=== PATIENT | male | born 1960 | race African-American/Black ===

== ENCOUNTER 2016-03-17 08:17 | Emergency (ER) | payer OTHER ==
[2016-03-17 08:25] VITALS: BMI 26.9
--- NOTE | 2016-03-17 09:13 | PDOC ---
History of Present Illness - General History Source: Patient - History of Present Illness Timing/Duration: 1 week Severity: mild Associated Symptoms: denies: chest pain, headaches, nausea/vomiting, weakness <Camila JonesRejiKailey Last Filed: 03/17/16 11:24> <Gurjit Goel - Last Filed: 03/20/16 11:03> - General Chief Complaint: Pain Stated Complaint: TINGLING SENSATION TO LT ARM Time Seen by Provider: 03/17/16 08:49 Past History - Past Medical History Other medical history: denies - Psycho/Social/Smoking Cessation Hx Anxiety: No Suicidal Ideation: No Smoking History: Never smoked Have you smoked in the past 12 months: No Information on smoking cessation initiated: No Hx Alcohol Use: No Drug/Substance Use Hx: No Substance Use Type: None <Camila JonesRejiKailey Last Filed: 03/17/16 11:24> <Gurjit Goel - Last Filed: 03/20/16 11:03> - Past Medical History Allergies/Adverse Reactions: Allergies Allergy/AdvReac Type Severity Reaction Status Date / Time No Known Allergies Allergy Verified 03/17/16 08:20 Review of Systems - Review of Systems Constitutional: No: Chills, Fever Respiratory: No: Shortness of Breath Cardiac (ROS): No: Chest Pain ABD/GI: No: Nausea, Vomiting Musculoskeletal: No: Neck Pain Neurological: Yes: Tingling. No: Headache, Numbness, Dizziness <WellfleetCamila woodsRejiKailey Last Filed: 03/17/16 11:24> *Physical Exam - Vital Signs Last Vital Signs Temp Pulse Resp BP Pulse Ox 98.6 F 58 L 20 149/67 100 03/17/16 08:22 03/17/16 08:22 03/17/16 08:22 03/17/16 08:22 03/17/16 08:22 - Physical Exam General Appearance: Yes: Appropriately Dressed. No: Apparent Distress HEENT: positive: Normal Voice Neck: positive: Supple Respiratory/Chest: positive: Lungs Clear, Normal Breath Sounds. negative: Respiratory Distress Cardiovascular: positive: Regular Rate, S1, S2 Integumentary: positive: Dry, Warm Neurologic: positive: Fully Oriented, Alert, Normal Mood/Affect, Motor Strength 5/5 <Maxine Jones - Last Filed: 03/17/16 11:24> - Vital Signs Last Vital Signs Temp Pulse Resp BP Pulse Ox 98.1 F 60 18 131/82 100 03/17/16 11:54 03/17/16 11:54 03/17/16 11:54 03/17/16 11:54 03/17/16 11:54 <Gurjit Goel - Last Filed: 03/20/16 11:03> Heart Score/ECG Review - ECG Intrepretation Comment:: 03/17/16 11:20 Sinus samantha to 50 on EKG, ekg unremarkable otherwise <Camila JonesJackson - Last Filed: 03/17/16 11:24> ED Treatment Course - LABORATORY CBC & Chemistry Diagram: 03/17/16 09:40 03/17/16 09:40 <Camila JonesJackson - Last Filed: 03/17/16 11:24> - LABORATORY CBC & Chemistry Diagram: 03/17/16 09:40 03/17/16 09:40 - ADDITIONAL ORDERS Additional order review: 03/17/16 09:40 RBC 4.95 MCV 84.9 MCHC 32.2 RDW 13.5 MPV 8.1 Neutrophils % 38.3 L Lymphocytes % 50.4 H Monocytes % 7.7 Eosinophils % 2.8 Basophils % 0.8 <Gurjit Goel - Last Filed: 03/20/16 11:03> Medical Decision Making - Medical Decision Making 03/17/16 09:06 55 yo M, denies any pmhx, p/w tingling to LUE x 1 week. Pt reports sensation as "electric shock" that starts at L fingertips and radiates to shoulder, mostly present at nights and worse when lying on both sides and resolves in supine position. States sxs worsened last night and for the first time, symptoms is occuring in the day. Denies neck pain, numbness, weakness, CP or sob. No h/o similar sxs. No new meds See exam LUE tingling x 1 week Stable w/ unremarkable exam No neck pain/UE weakness to suggest radiculopathy, less likely cardiac or CVA, ? electrolyte ab/nl -ekg/labs -anticipate discharge w/ neuro f/u 03/17/16 11:20 Labs unremarkable. Patient stable for discharge at this time, to follow up with neurology <Maxine Jones - Last Filed: 03/17/16 11:24> - Medical Decision Making The patient was seen and evaluated in conjunction with CARRINGTON Haro under my direct supervision, ancillary studies were reviewed. I agree with the plan as outlined by CARRINGTON Jones . <Gurjit Goel - Last Filed: 03/20/16 11:03> *DC/Admit/Observation/Transfer <Maxine Jones - Last Filed: 03/17/16 11:24> <Gurjit Gole - Last Filed: 03/20/16 11:03> Diagnosis at time of Disposition: Tingling - Discharge Dispostion Disposition: HOME Condition at time of disposition: Good - Referrals Referrals: Binh Wiley [Primary Care Provider] - Shelli Garner MD [Staff Physician] - - Patient Instructions Printed Discharge Instructions: DI for Numbness/tingling Additional Instructions: The cause of your symptoms is unclear at this time. You will need to follow up with neurology for further evaluation. Follow-up with Dr. Vásquez
[2016-03-17 09:56] LABS: BASOPHIL 0.8 % (0-2.0); EOSINOPHIL 2.8 % (0-4.5); MCH 27.3 pg (25.7-33.7); MCHC 32.2 g/dl (32.0-35.9); MEAN CELL VOLUME 84.9 fl (80-96); MEAN PLT VOLUME 8.1 fl (7.5-11.1); NEUTROPHILS 38.3 % (42.8-82.8); PLATELET COUNT 210 K/MM3 (134-434); RDW 13.5 % (11.9-15.9); WHITE BLOOD COUNT 5.5 K/mm3 (4.0-10.0)
[2016-03-17 09:58] LABS: URINE APPEARANCE CLEAR; URINE BILIRUBIN NEGATIVE (NEGATIVE); URINE COLOR LTYELLOW; URINE GLUCOSE (UA) NEGATIVE (NEGATIVE); URINE KETONE NEGATIVE (NEGATIVE); URINE LEUK ESTERASE NEGATIVE (NEGATIVE); URINE NITRITE NEGATIVE (NEGATIVE); URINE PROTEIN NEGATIVE (NEGATIVE); URINE UROBILINOGEN NEGATIVE E.U./dl (0.2-1.0)
[2016-03-17 10:03] LABS: URINE BLOOD 1+ (NEGATIVE)
[2016-03-17 10:17] LABS: ALBUMIN 3.9 g/dl (3.4-5.0); ALK PHOS 50 U/L (45-117); ANION GAP 4 (8-16); CALCIUM 8.8 mg/dL (8.5-10.1); CO2 31 mmol/L (21-32); GLUCOSE,RANDOM 76 mg/dL (74-106); SGOT/AST 20 U/L (15-37); SGPT/ALT 28 U/L (12-78); TOT PROT 7.5 g/dl (6.4-8.2)
[2016-03-17 11:04] LABS: URINE MUCUS RARE; URINE RBC 2 /hpf (0-3); URINE WBC 1 /hpf (3-5)
[2016-03-17 11:55] VITALS: BP 131/82; PULSE 60; TEMP 98.1
[2016-03-17 12:09] LABS: TROPONIN I < 0.02 ng/ml (0.00-0.05)
--- NOTE | 2016-03-17 12:14 | EKG ---
Test Reason : Blood Pressure : / mmHG Vent. Rate : 048 BPM Atrial Rate : 048 BPM P-R Int : 196 ms QRS Dur : 088 ms QT Int : 430 ms P-R-T Axes : 028 -05 -05 degrees QTc Int : 384 ms SINUS BRADYCARDIA NONSPECIFIC ST ABNORMALITY ABNORMAL ECG WHEN COMPARED WITH ECG OF 12-DEC-2007 10:19, NO SIGNIFICANT CHANGE WAS FOUND Confirmed by RADHA MEJIAS MD ([id number]) on 03/17/2016 12:14:02 PM Referred By: Confirmed By:RADHA MEJIAS MD
== END 2016-03-17 11:56 | disposition home or self-care (01) ==
LOC: JER 08:17
DX: R20.2 Paresthesia of skin (principal)
CPT/HCPCS: 36415; 80053; 81003; 81015; 82550; 82553; 83735; 84484; 85025; 93005; 93010; 99284-25

== ENCOUNTER 2018-03-24 11:18 | Emergency (ER) | payer OTHER ==
[2018-03-24 11:29] VITALS: PULSE 60; TEMP 98.3; BMI 27.3
[2018-03-24] MEDS ORDERED: KETOROLAC TROMETHAMINE 30 MG/1 ML VIAL IVPUSH ONE (12:09)
--- NOTE | 2018-03-24 12:17 | PDOC ---
History of Present Illness - General History Source: Patient Exam Limitations: No Limitations - History of Present Illness Initial Comments: 03/24/18 12:23 The patient is a 57 year old male with a PMH of left knee repair in 1998 presenting with chest pain with associated pins and needles down the left hand that began yesterday. Patient states the chest pain is similar to the pain he has had for several years. Patient reports the chest pain is reproducible with turning the neck to the left. Denies any trauma to the area. Patient took Tylenol at home with some relief. Patient has not had cardiac work- up in the past. The patient denies shortness of breath, headache and dizziness. Denies fever, chills, nausea, vomit, diarrhea and constipation. Denies dysuria, frequency, urgency and hematuria. Allergies: NKA Past surgical history: None reported. Social history: No reported alcohol, drug or cigarette use. PCP: Dr. Wiley <Christen Holt - Last Filed: 03/24/18 12:22> - General History Source: Patient Exam Limitations: No Limitations <Garo Myers - Last Filed: 03/24/18 13:13> - General Chief Complaint: Chest Pain Stated Complaint: CHEST PAIN Time Seen by Provider: 03/24/18 11:33 Past History <Christen Holt - Last Filed: 03/24/18 12:22> - Past Medical History COPD: No - Suicide/Smoking/Psychosocial Hx Smoking History: Never smoked Have you smoked in the past 12 months: No Hx Alcohol Use: No Drug/Substance Use Hx: No Substance Use Type: None <Garo Myers - Last Filed: 03/24/18 13:13> - Past Medical History Allergies/Adverse Reactions: Allergies Allergy/AdvReac Type Severity Reaction Status Date / Time No Known Allergies Allergy Verified 03/24/18 11:29 Home Medications: Ambulatory Orders Naproxen 500 mg PO BID PRN #20 tablet 03/24/18 Review of Systems - Review of Systems Able to Perform ROS?: Yes Comments:: 03/24/18 12:22 ADULT ROS GENERAL/CONSTITUTIONAL: No fever or chills. No weakness. HEAD, EYES, EARS, NOSE AND THROAT: No change in vision. No ear pain or discharge. No sore throat. CARDIOVASCULAR: (+) chest pain. No shortness of breath. RESPIRATORY: No cough, wheezing, or hemoptysis. GASTROINTESTINAL: No nausea, vomiting, diarrhea or constipation. GENITOURINARY: No dysuria, frequency, or change in urination. MUSCULOSKELETAL: No joint or muscle swelling or pain. No neck or back pain. SKIN: No rash NEUROLOGIC: No headache, vertigo, loss of consciousness, or change in strength/ sensation. ENDOCRINE: No increased thirst. No abnormal weight change. HEMATOLOGIC/LYMPHATIC: No anemia, easy bleeding, or history of blood clots. ALLERGIC/IMMUNOLOGIC: No hives or skin allergy. <Christen Holt - Last Filed: 03/24/18 12:22> *Physical Exam - Vital Signs Last Vital Signs Temp Pulse Resp BP Pulse Ox 98.3 F 60 18 134/76 96 03/24/18 11:03/24/18 11:03/24/18 11:03/24/18 11:03/24/18 11:26 - Physical Exam Comments: 03/24/18 12:22 ADULT EXAM GENERAL: Awake, alert, and fully oriented, in no acute distress EYES: PERRLA, EOMI, sclera anicteric, conjunctiva clear ENT: Auricles normal inspection, hearing grossly normal, nares patent. Moist mucosa NECK: Normal ROM, supple, JVD, or masses LUNGS: Breath sounds equal, clear to auscultation bilaterally. No wheezes, and no crackles HEART: Regular rate and rhythm, normal S1 and S2, no murmurs, rubs or gallops ABDOMEN: Soft, nontender, normoactive bowel sounds. No guarding, no rebound. No masses EXTREMITIES: No edema. No clubbing or cyanosis. No cords, erythema, or tenderness. Normal right upper extremity strength and sensation. Reproducible pain on the left axial loading of the spine. NEUROLOGICAL: Cranial nerves II through XII grossly intact. SKIN: Warm, Dry, normal turgor, no rashes or lesions noted. <Christen Holt - Last Filed: 03/24/18 12:22> - Vital Signs Last Vital Signs Temp Pulse Resp BP Pulse Ox 98.3 F 60 18 134/76 96 03/24/18 11:26 03/24/18 11:03/24/18 11:03/24/18 11:03/24/18 11:26 <Garo Myers - Last Filed: 03/24/18 13:13> Moderate Sedation - Procedure Monitoring Vital Signs: Procedure Monitoring Vital Signs Temperature 98.3 F 03/24/18 11:26 Pulse Rate 60 03/24/18 11:26 Respiratory Rate 18 03/24/18 11:26 Blood Pressure 134/76 03/24/18 11:26 O2 Sat by Pulse Oximetry (%) 96 03/24/18 11:26 <Christen Holt - Last Filed: 03/24/18 12:22> - Procedure Monitoring Vital Signs: Procedure Monitoring Vital Signs Temperature 98.3 F 03/24/18 11:26 Pulse Rate 60 03/24/18 11:26 Respiratory Rate 18 03/24/18 11:26 Blood Pressure 134/76 03/24/18 11:26 O2 Sat by Pulse Oximetry (%) 96 03/24/18 11:26 <Garo Myers - Last Filed: 03/24/18 13:13> Heart Score/ECG Review #1 ECG reviewed & interpreted by me at: 11:25 03/24/18 12:18 NSR 56, no std/tian, TWI III, normal axis, normal intervals, QTC 384 msec <Garo Myers - Last Filed: 03/24/18 13:13> ED Treatment Course - LABORATORY CBC & Chemistry Diagram: 03/24/18 12:18 03/24/18 12:18 - RADIOLOGY Radiology Studies Ordered: Category Date Time Status CHEST X-RAY PORTABLE* [RAD] Stat Radiology 03/24/18 11:52 Ordered <Garo Myers - Last Filed: 03/24/18 13:13> Medical Decision Making - Medical Decision Making 03/24/18 12:11 A portion of this note was documented by scribe services under my direction. I have reviewed the details of the note, within reason, and agree with the documentation with the following case summary and management plan written by me. Patient treated in the ED. Nursing notes are reviewed and incorporated into the medical decision-making. Vital signs reviewed. Peripheral IV access obtained by the nurse, laboratory studies are drawn and sent, reviewed and interpreted by myself. Vital Signs Temp Pulse Resp BP Pulse Ox 98.3 F 60 18 134/76 96 03/24/18 11:26 03/24/18 11:26 03/24/18 11:26 03/24/18 11:26 03/24/18 11:26 57-year-old male with past medical history of left knee repair in 1998 presents with chest pain since yesterday. Patient reports that he has had these pains for several years. However, the patient reproduces itself upon turning his neck to the left. States that this shooting pins and needles down his left hand. No exertional component. No shortness of breath. Denies recent illnesses, fevers, chills, cough, vomiting. Denies any recent trauma. Patient reports that sleeping on the left side with turning the left neck reproduces the pain. Took Tylenol this morning with minimal effect. No family history of cardiac disease. Never smoked. Never had a stress test or an echocardiogram. This is unlikely to be acute coronary syndrome. I suspect this is actually cervical radiculopathy. EKG is reassuring and normal. We'll obtain labs and a troponin and a chest injury. The workup is negative, we'll refer the patient to an outpatient doctor for physical therapy referral. 03/24/18 13:11 CBC, BMP 03/24/18 12:18 03/24/18 12:18 CMP Sodium 138 mmol/L (136-145) 03/24/18 12:18 Potassium 4.1 mmol/L (3.5-5.1) 03/24/18 12:18 Chloride 102 mmol/L (98-107) 03/24/18 12:18 Carbon Dioxide 32 mmol/L (21-32) 03/24/18 12:18 Anion Gap 4 MMOL/L (8-16) L 03/24/18 12:18 BUN 12 mg/dL (7-18) 03/24/18 12:18 Creatinine 0.9 mg/dL (0.55-1.3) 03/24/18 12:18 Creat Clearance w eGFR > 60 (>60) 03/24/18 12:18 Random Glucose 78 mg/dL (74-106) 03/24/18 12:18 Calcium 9.0 mg/dL (8.5-10.1) 03/24/18 12:18 Total Bilirubin 0.9 mg/dL (0.2-1) 03/24/18 12:18 AST 17 U/L (15-37) 03/24/18 12:18 ALT 28 U/L (13-61) 03/24/18 12:18 Alkaline Phosphatase 62 U/L (45-117) 03/24/18 12:18 Creatine Kinase 189 IU/L (26-308) 03/24/18 12:18 Troponin I < 0.02 ng/ml (0.00-0.05) 03/24/18 12:18 Total Protein 7.8 g/dl (6.4-8.2) 03/24/18 12:18 Albumin 3.6 g/dl (3.4-5.0) 03/24/18 12:18 Trop negative. Will d/c home with PMD follow up. I discussed the physical exam findings, ancillary test results and final diagnoses with the patient. I answered all of the patient's questions. The patient was satisfied with the care received and felt comfortable with the discharge plan and treatment plan. The patient will call their primary care physician within 24 hours to arrange follow-up and will return to the Emergency Department with any new, persistant or worsening symptoms. <Garo Myers - Last Filed: 03/24/18 13:13> *DC/Admit/Observation/Transfer - Attestations Scribe Attestion: 03/24/18 12:22 Documentation prepared by Christen Holt, acting as director of medical education for Garo Myers MD. <Christen Holt - Last Filed: 03/24/18 12:22> - Discharge Dispostion Decision to Admit order: No <Garo Myers - Last Filed: 03/24/18 13:13> Diagnosis at time of Disposition: Cervical radiculopathy, Atypical chest pain - Discharge Dispostion Disposition: HOME Condition at time of disposition: Improved - Prescriptions Prescriptions: Naproxen 500 mg PO BID PRN #20 tablet PRN Reason: Pain - Referrals Referrals: Binh Wiley [Primary Care Provider] - - Patient Instructions Printed Discharge Instructions: DI for Atypical Chest Pain, DI for Cervical Radiculopathy Additional Instructions: Your EKG is normal. Your blood work and chest xray is normal. I suspect that the pain is coming from your neck. Please see your doctor about obtaining a referral for physical therapy. - Post Discharge Activity
[2018-03-24 12:27] LABS: BASO % 0.7 % (0-2.0); EOS % 4.1 % (0-4.5); HEMATOCRIT 42.8 % (35.4-49); HEMOGLOBIN 14.5 GM/dL (11.7-16.9); MCH 28.3 pg (25.7-33.7); MCHC 33.9 g/dl (32.0-35.9); MEAN CELL VOLUME 83.4 fl (80-96); MEAN PLT VOLUME 8.8 fl (7.5-11.1); NEUT % 30.2 % (42.8-82.8); PLATELET COUNT 210 K/MM3 (134-434); RBC 5.13 M/mm3 (4.00-5.60); RDW 13.8 % (11.9-15.9); WHITE BLOOD COUNT 5.6 K/mm3 (4.0-10.0)
[2018-03-24] MEDS ORDERED: KETOROLAC TROMETHAMINE 30 MG/1 ML VIAL ONE (12:33)
[2018-03-24 12:59] LABS: ALBUMIN 3.6 g/dl (3.4-5.0); ALK PHOS 62 U/L (45-117); ANION GAP 4 MMOL/L (8-16); BILIRUBIN,TOTAL 0.9 mg/dL (0.2-1); BLOOD UREA NITROGEN 12 mg/dL (7-18); CHLORIDE 102 mmol/L (98-107); CO2 32 mmol/L (21-32); CREATININE 0.9 mg/dL (0.55-1.3); GLUCOSE,RANDOM 78 mg/dL (74-106); POTASSIUM 4.1 mmol/L (3.5-5.1); SGOT/AST 17 U/L (15-37); SGPT/ALT 28 U/L (13-61); SODIUM 138 mmol/L (136-145); TOT PROT 7.8 g/dl (6.4-8.2)
[2018-03-24 13:25] VITALS: BP 126/74
--- NOTE | 2018-03-24 22:27 | EKG ---
Test Reason : Blood Pressure : / mmHG Vent. Rate : 056 BPM Atrial Rate : 056 BPM P-R Int : 180 ms QRS Dur : 090 ms QT Int : 398 ms P-R-T Axes : 037 -07 006 degrees QTc Int : 384 ms SINUS BRADYCARDIA OTHERWISE NORMAL ECG WHEN COMPARED WITH ECG OF 17-MAR-2016 10:16, NO SIGNIFICANT CHANGE WAS FOUND Confirmed by ASHLYN GALLO MD ([id number]) on 03/24/2018 10:27:29 PM Referred By: Confirmed By:ASHLYN GALLO MD
== END 2018-03-24 13:25 | disposition home or self-care (01) ==
LOC: JER 11:18
PROC: 3E0333Z Introduction of Anti-inflammatory into Peripheral Vein, Percutaneous Approach (ICD-10-PCS; principal; 2018-03-24)
DX: M54.12 Radiculopathy, cervical region (principal); R07.9 Chest pain, unspecified
CPT/HCPCS: 36415; 71045-TC-FY; 80053; 82550; 82553; 84484; 85025; 93005; 93010; 96374; 99282-25

== ENCOUNTER 2018-08-21 18:02 | Emergency (ER) | payer OTHER | END 2018-08-21 20:19 | disposition home or self-care (01) | LOC: JERFT 18:02 ==

== ENCOUNTER 2022-09-15 08:54 | Emergency (ER) | payer OTHER ==
[2022-09-15 09:01] VITALS: BP 115/88; PULSE 71; RESP 16; TEMP 98.6; BMI 26.5
[2022-09-15] MEDS ORDERED: KETOROLAC TROMETHAMINE 30 MG/1 ML VIAL IM ONE (09:20)
[2022-09-15] MEDS ORDERED: KETOROLAC TROMETHAMINE 30 MG/1 ML VIAL ONE (09:26)
== END 2022-09-15 10:57 | disposition home or self-care (01) ==
LOC: JERFT 08:54
PROC: 3E0233Z Introduction of Anti-inflammatory into Muscle, Percutaneous Approach (ICD-10-PCS; principal; 2022-09-15)
DX: M25.512 Pain in left shoulder (principal)
CPT/HCPCS: 73030-TC-LT-FY; 99284-25